=== PATIENT | male | born 1995 | race Caucasian/White ===

== ENCOUNTER 2017-03-07 10:36 | Emergency (ER) | payer SELFPAY ==
[~2017-03-07 10:36] MED LIST: NO HOME MEDICATIONS; PCET PO; PR25 PO
== END 2017-03-07 13:28 | disposition home or self-care (01) ==
LOC: ER 10:36
DX: M54.2 Cervicalgia (principal); M54.9 Dorsalgia, unspecified; M25.511 Pain in right shoulder; R51 Headache; F17.200 Nicotine dependence, unspecified, uncomplicated; Z90.49 Acquired absence of other specified parts of digestive tract; Z88.6 Allergy status to analgesic agent; Z79.899 Other long term (current) drug therapy; V49.9XXA Car occupant (driver) (passenger) injured in unspecified traffic accident, initial encounter
CPT/HCPCS: 70450; 72072; 72100; 72125; 73030-RT; 96372; 99285; J1885; J2360